=== PATIENT | female | born 1995 | race Caucasian/White ===

== ENCOUNTER 2023-12-16 09:32 | Outpatient (CLI) | payer OTHER, SELFPAY ==
[2023-12-16 13:35] LABS: Chlamydia DNA Amplified* NOT DETECTED (No Detected); GC DNA Amplified* NOT DETECTED (No Detected)
== END 2023-12-16 09:33 | disposition home or self-care (01) ==
PROVIDERS: Visit Provider Obstetrics & Gynecology
DX: Z01.419 Encounter for gynecological examination (general) (routine) without abnormal findings (principal); R10.2 Pelvic and perineal pain; R30.0 Dysuria; N97.0 Female infertility associated with anovulation; Z11.3 Encounter for screening for infections with a predominantly sexual mode of transmission; Z13.6 Encounter for screening for cardiovascular disorders; Z13.1 Encounter for screening for diabetes mellitus
CPT/HCPCS: 80061; 84144; 84146; 84439; 84443; 84481; 87086; 87491; 87591

== ENCOUNTER 2024-12-25 09:11 | Outpatient (CLI) | payer OTHER, SELFPAY ==
[2024-12-27 15:13] LABS: HPV Source Cervix
[2024-12-28 11:24] LABS: Pap Test Digital Imaging Done
== END 2024-12-25 09:12 | disposition home or self-care (01) ==
PROVIDERS: Visit Provider Obstetrics & Gynecology
DX: Z12.4 Encounter for screening for malignant neoplasm of cervix (principal)
CPT/HCPCS: 87624; 87625; 88141; 88142; 88175